=== PATIENT | male | born 1970 | race Caucasian/White ===

== ENCOUNTER 2017-09-13 21:59 | Inpatient (IN) | payer OTHER ==
[~2017-09-13] VITALS: Ht 175.3 cm; Wt 97.0 kg
[~2017-09-13 21:59] MED LIST: AMOXICILLIN 50500 MG PO
[2017-09-13 22:40] LABS: COLLECTION METHOD CLEAN CATCH
[2017-09-13 22:42] LABS: BASO # 0.1 (0.0-0.2); BASO % 0.6 % (0.0-2.0); EOS # 0.2 (0.0-0.7); EOS % 1.8 % (0-4.0); GRAN # 4.6 (1.4-6.5); HEMATOCRIT 40.7 % (42.0-52.0); HEMOGLOBIN 14.2 g/dl (13.5-18.0); LYMPH # 3.3 (1.2-3.4); LYMPH % 36.8 % (20.0-51.0); MEAN CELL VOLUME 86 fl (80.0-100.0); MEAN CORPUSCULAR HEMOGLOBIN 30 pg (27.0-31.0); MEAN CORPUSCULAR HGB CONC 35 g/dl (33.0-37.0); MEAN PLATELET VOLUME 8.5 fl (7.4-10.4); MONO # 0.8 (0.1-0.6); MONO % 9.4 % (1.7-9.3); PLATELET COUNT 224 K/mm3 (130-400); RED BLOOD COUNT 4.71 M/mm3 (4.20-5.60); WHITE BLOOD COUNT 8.9 K/mm3 (4.8-10.8)
[2017-09-13 22:49] LABS: MUCOUS Present /lpf; PH 7 (5-8); SQUAMOUS EPITHELIAL 0-2 /hpf; URINE APPEARANCE Hazy; URINE BACTERIA None Seen /hpf; URINE BILIRUBIN Negative (NEGATIVE); URINE BLOOD Negative (NEGATIVE); URINE COLOR Yellow; URINE GLUCOSE 1+ (NEGATIVE); URINE KETONE Negative (NEGATIVE); URINE LEUKOCYTE ESTERASE Negative (NEGATIVE); URINE PROTEIN(semi-quant) Negative (NEGATIVE); URINE RBC 0-2 /hpf; URINE WBC 0-2 /hpf
[2017-09-13 22:58] LABS: ADJUSTED CALCIUM 9.1 mg/dL (8.4-10.2); BILIRUBIN,TOTAL 0.6 mg/dL (0.0-1.0); C-REACTIVE PROTEIN 7.2 mg/dL (0.0-0.9); CALCIUM 9.1 mg/dL (8.4-10.2); CREATININE, serum 1.02 mg/dL (0.66-1.25); POTASSIUM 3.8 mmol/L (3.4-5.0); TOTAL PROTEIN 7.2 gm/dL (6.4-8.2)
[2017-09-13] MEDS ORDERED: CEPHALEXIN500 M1 PO (23:54)
[2017-09-13] MEDS ORDERED: NORCO 325 MG-51 TAB PO (23:54)
[2017-09-14] VITALS (13 sets, daily range): BP systolic 104–152; BP diastolic 62–86; PULSE 70–83; TEMP 98–101.5
[2017-09-15 02:31] VITALS: BP 128/65; PULSE 74; TEMP 97.7
[2017-09-15 06:20] VITALS: BP 107/63; PULSE 70; TEMP 97.6
[2017-09-15 10:30] VITALS: BP 154/73; PULSE 67; TEMP 98.3
[2017-09-15 13:50] VITALS: BP 146/82; PULSE 83; TEMP 97.5
== END 2017-09-15 14:00 | disposition home or self-care (01) | DRG 670 ==
LOC: COL.ER 21:59 → SURG 09-14 00:16
PROVIDERS: Emergency Medicine; Urology
PROC: 0TC78ZZ Extirpation of Matter from Left Ureter, Via Natural or Artificial Opening Endoscopic (ICD-10-PCS; principal; 2017-09-14 16:00)
DX: N20.1 Calculus of ureter (principal)
CPT/HCPCS: C1769; J0696; J1100; J1170; J1885; J2270; J2405; J2704; J2765; J3010; J7030; Q9967

== ENCOUNTER 2021-12-17 15:33 | Emergency (ER) | payer SELFPAY ==
[~2021-12-17] VITALS: Ht 152.4 cm; Wt 90.9 kg
[~2021-12-17 15:33] MED LIST changes: +CEPHALEXIN500 M1 PO; +NORCO 325 MG-51 TAB PO
[2021-12-17 15:41] VITALS: TEMP 97.8
[2021-12-17 16:21] LABS: BASO # 0.1 K/mm3 (0.0-0.2); BASO % 0.4 % (0.0-2.0); EOS % 0.2 % (0.0-4.0); GRAN # 9.3 K/mm3 (1.4-6.5); HEMATOCRIT 42.7 % (42.0-52.0); HEMOGLOBIN 14.8 g/dl (13.5-18.0); LYMPH # 1.9 K/mm3 (1.2-3.4); LYMPH % 15.4 % (20.0-51.0); MEAN CELL VOLUME 88 fl (80.0-100.0); MEAN CORPUSCULAR HEMOGLOBIN 31 pg (27-31); MEAN CORPUSCULAR HGB CONC 35 g/dl (33.0-37.0); MEAN PLATELET VOLUME 8.5 fl (7.4-10.4); MONO # 0.9 K/mm3 (0.1-0.6); MONO % 7.3 % (1.7-9.3); PLATELET COUNT 271 K/mm3 (130-400); RED BLOOD COUNT 4.85 M/mm3 (4.20-5.60); REDCELL DISTRIBUTION WIDTH-CV 13.3 % (11.5-14.5)
[2021-12-17 16:35] LABS: ALBUMIN 3.7 gm/dL (3.5-5.0); BILIRUBIN,TOTAL 0.7 mg/dL (0.2-1.2); CALCIUM 8.7 mg/dL (8.4-10.2); CREATININE, serum 1.07 mg/dL (0.72-1.25); POTASSIUM 4.2 mmol/L (3.5-4.5)
[2021-12-17] MEDS ORDERED: PERCOCET 325 MG1 TA2 PO (17:46)
[2021-12-17 18:12] VITALS: BP 152/90; PULSE 81
== END 2021-12-17 18:52 | disposition home or self-care (01) ==
LOC: COL.ER 15:33
PROVIDERS: Personal Emergency Response Attendant
DX: S22.41XA Multiple fractures of ribs, right side, initial encounter for closed fracture (principal); S30.1XXA Contusion of abdominal wall, initial encounter; S27.321A Contusion of lung, unilateral, initial encounter; S06.9X1A Unspecified intracranial injury with loss of consciousness of 30 minutes or less, initial encounter; M54.9 Dorsalgia, unspecified; M25.511 Pain in right shoulder; F17.200 Nicotine dependence, unspecified, uncomplicated; W11.XXXA Fall on and from ladder, initial encounter
CPT/HCPCS: A9284; J2270; J2405; J7030; Q9967